=== PATIENT | female | born 1975 | race African-American/Black ===

== ENCOUNTER 2023-06-16 11:52 | Emergency (ER) | payer MEDICAID, OTHER ==
[~2023-06-16] VITALS: Ht 152.4 cm; Wt 131.8 kg
[2023-06-16 13:20] VITALS: BP 141/94; PULSE 90; RESP 18; TEMP 98.5; O2SAT 97
[2023-06-16] MEDS ORDERED: IBUP-1456 PO (13:20)
[2023-06-16] MEDS ORDERED: PRED20TA2 PO (13:20)
[2023-06-16 16:11] LABS: Urine Bacteria NONE SEEN /hpf (None Seen); Urine Blood 1+ /uL (Negative); Urine Clarity Clear (Clear); Urine Color Yellow (Yellow); Urine Mucus FEW (None Seen); Urine Protein, UAD TRACE (Negative); Urine Specific Gravity 1.033 (1.001-1.035); Urine Urobilinogen Normal (Negative); Urine WBC 1 /hpf (0 - 5); Urine pH 5.5 (5.0-8.0)
== END 2023-06-16 13:29 | disposition home or self-care (01) ==
LOC: ER 11:52
DX: M50.10 Cervical disc disorder with radiculopathy, unspecified cervical region (principal)
CPT/HCPCS: 72040; 81001